=== PATIENT | female | born 1955 | race Two or more races ===

== ENCOUNTER 2021-10-29 21:42 | Emergency (ER) | payer MEDICAID ==
[~2021-10-29] VITALS: Ht 165.1 cm; Wt 74.8 kg
--- NOTE | 2021-10-29 22:11 | NUR ---
CALLED FOR TRIAGE , NO ANSWER
--- NOTE | 2021-10-29 22:55 | NUR ---
BIBS FOR C/O HEDACHE AND DIZZINESS X 1 WEEK. PT A/OX4. TOLERATING R/A WELL WITH NO SOB
[2021-10-29] MEDS ORDERED: MECLIZINE HCL 25 MG TABLET ONE (23:16)
[2021-10-29] MEDS ORDERED: MECLIZINE HCL 25 MG TABLET PO ONE (23:30)
[2021-10-30 00:09] VITALS: BP 133/79
--- NOTE | 2021-10-30 00:11 | NUR ---
PT DENIES DIZZINESS AT THIS TIME. VSS. PT AMBULATORY WITH STEADY GAIT WITHOUT DIZZINESS
[2021-10-30] MEDS ORDERED: MECL-159 PO (00:47)
--- NOTE | 2021-10-30 00:51 | NUR ---
Patient discharged to home in stable condition. Written and verbal after care instructions given. Patient verbalizes understanding of instruction. PT ambulatory with a steady gait
== END 2021-10-30 01:02 | disposition home or self-care (01) ==
LOC: ER 21:45
DX: H93.13 Tinnitus, bilateral (principal); E78.5 Hyperlipidemia, unspecified; Z85.038 Personal history of other malignant neoplasm of large intestine; Z60.2 Problems related to living alone
CPT/HCPCS: 99282; J8597